=== PATIENT | male | born 2000 | race Two or more races ===

== ENCOUNTER 2018-08-06 23:10 | Emergency (ER) | payer OTHER ==
[~2018-08-06] VITALS: Ht 177.8 cm; Wt 113.6 kg
[2018-08-07] MEDS ORDERED: KETOROLAC 30 MG/ML VIAL (J1885) IV ONE
[2018-08-07] MEDS ORDERED: PANTOPRAZOLE 40MG TAB (PROTONIX) PO ONE
[2018-08-07] MEDS ORDERED: ONDANSETRON 4MG/2ML VIAL (J2405) IV ONE
[2018-08-07] MEDS ORDERED: NS 1,000 ML IV ONE
[2018-08-07 00:10] LABS: BASO % 0.2 % (0.0-1.0); EOS # 0.1 10^3/uL (0.0-0.50); EOS % 1.1 % (0.0-3.0); HEMATOCRIT 46.7 % (42.0-52.0); HEMOGLOBIN 16.3 g/dl (13.5-17.5); LYMPH % 19.9 % (24.0-44.0); MEAN CORPUSCULAR HEMOGLOBIN 29.1 pg (27.0-33.0); MEAN CORPUSCULAR HGB CONC 34.9 g/dl (32.0-36.5); MEAN CORPUSCULAR VOLUME 83.4 fl (80.0-96.0); MONO # 0.8 10^3/uL (0.0-0.8); MONO % 8.4 % (0.0-5.0); NEUTROPHILS # 6.9 10^3/uL (1.8-7.7); NEUTROPHILS % 70.1 % (36.0-66.0); PLATELET COUNT, AUTOMATED 273 10^3/uL (150-450); WHITE BLOOD COUNT 9.9 10^3/uL (4.0-10.0)
[2018-08-07] MEDS ORDERED: PANTOPRAZOLE 40MG INJ (PROTONIX) (C9113) IV ONE (00:15)
[2018-08-07 00:34] LABS: ALBUMIN 3.9 GM/DL (3.2-5.2); ALT/SGPT 36 U/L (12-78); BILIRUBIN,DIRECT 0.1 MG/DL (0.0-0.2); BILIRUBIN,TOTAL 0.3 MG/DL (0.2-1.0); BLOOD UREA NITROGEN 21 MG/DL (7-18); CARBON DIOXIDE LEVEL 27 MEQ/L (21-32); CHLORIDE LEVEL 106 MEQ/L (98-107); CREATININE FOR GFR 1.16 MG/DL (0.70-1.30); GLUCOSE, FASTING 108 MG/DL (70-100); LIPASE 92 U/L (73-393); POTASSIUM SERUM 3.5 MEQ/L (3.5-5.1); SODIUM LEVEL 140 MEQ/L (136-145); TOTAL PROTEIN 7.7 GM/DL (6.4-8.2)
--- NOTE | 2018-08-07 01:08 | REPVR ---
EXAM: US Abdomen Limited, Right Upper Quadrant EXAM DATE/TIME: 08/07/2018 12:13 AM CLINICAL HISTORY: 18 years old, male; Pain; Abdominal pain; Epigastric; Additional info: Epigastric/ruq pain TECHNIQUE: Real-time ultrasound of the abdomen with image documentation. Examination was focused on the right upper quadrant. COMPARISON: No relevant prior studies available. FINDINGS: Liver: The liver is mildly echogenic and attenuating. There is question of a 7 mm hemangioma. Gallbladder: The gallbladder demonstrates no stones. There is probable gallbladder sludge and no wall thickening measuring 2-3 mm. There is a positive sono Yin's sign. Common bile duct: The common bile duct measures 4 mm. Pancreas: The pancreas is obscured by gas shadowing. Right kidney: The right kidney is normal measuring 10.6 cm. IMPRESSION: 1. The gallbladder demonstrates no stones but probable sludge. There is no wall thickening, however, there is a positive sono Yin's sign. 2. Fatty infiltration of the liver with question of a 7 mm hemangioma anteriorly. 3. Otherwise negative right upper quadrant sonogram. The pancreas is obscured by gas. Electronically signed by: Timmy Ryan On 08/07/2018 01:08:32 AM
[2018-08-07] MEDS ORDERED: ZOFR4TAB14 PO (01:26)
[2018-08-07] MEDS ORDERED: PERC5TAB12 PO (01:26)
[2018-08-07] MEDS ORDERED: PERCOCET 5MG/325MG TAB PO ONE (01:30)
[2018-08-07] MEDS ORDERED: OXYCODONE/APAP 5MG/325MG(BULK FOR ED) 1 TABLET PO ONE (01:30)
[2018-08-07 01:31] VITALS: BP 144/76
--- NOTE | 2018-08-08 08:22 | ED PDOC ---
Post-Departure Follow-Up radiology rpeort faxed to Roberta Hemphill MD Aug 08, 2018 08:22
== END 2018-08-07 01:39 | disposition home or self-care (01) ==
LOC: M ED 23:10
DX: K80.50 Calculus of bile duct without cholangitis or cholecystitis without obstruction (principal); K83.8 Other specified diseases of biliary tract; R11.0 Nausea
CPT/HCPCS: 76705; 80048; 80076; 83690; 85025; 96374; 96375; 99284; C9113; J1885; J2405